=== PATIENT | male | born 1970 | race Caucasian/White ===

== ENCOUNTER → 2018-01-25 14:35 | Outpatient (CLI) | payer OTHER, SELFPAY ==
--- NOTE | 2018-01-25 | DI.CT.S_ITS ---
PROCEDURE: CT ABDOMEN PELVIS WO/W CON INDICATIONS: GROSS HEMATURIA TECHNIQUE: Optional 5 mm thick noncontrast images acquired from the diaphragm to the symphysis pubis. After the administration of intravenous contrast, 5 mm thick images acquired from the diaphragm to the symphysis pubis after a 10-minute delay. 2 mm thick coronal and sagittal reformats were then performed of the kidneys and ureters. For radiation dose reduction, the following was used: automated exposure control, adjustment of mA and/or kV according to patient size. COMPARISON: None. FINDINGS: Image quality: Excellent. Lung bases: Lung bases are clear. Heart size is normal. Urinary system: Both kidneys are normal in size, without hydronephrosis or nephrolithiasis on pre-contrast images. No perinephric fat stranding. There is normal bilateral renal enhancement. Renal calyces appear normal in morphology when filled with contrast. Opacified portions of both ureters demonstrate normal caliber. Bladder wall thickness appears mildly circumferentially thickened although unclear if this is due to partial decompression. No calcified bladder stones. Other solid organs: Liver is normal in size and enhancement. Gallbladder negative. Biliary system is non dilated. Pancreas enhances normally. Spleen is normal in size and enhancement. No adrenal nodules. Peritoneum and bowel: Bowel loops demonstrate normal wall thickness and caliber. No free fluid or air. The appendix is not clearly identified due to paucity of intra-abdominal fat however no suspicious right lower quadrant inflammatory changes are seen Nodes and vessels: No retroperitoneal or mesenteric adenopathy by size criteria. Aorta and inferior vena cava are normal in size. Abdominal wall: No ventral hernias. Pelvis: No pathologic free pelvic fluid. No inguinal hernias or adenopathy. Bones: No suspicious bony lesions. No vertebral body compression fractures. IMPRESSION: No urolithiasis or evidence of urinary obstruction identified. The bladder is partially decompressed (which makes evaluation suboptimal) however there is suspicion of mild circumferential bladder wall thickening, suggestive of cystitis, less likely neoplasm. However please correlate clinically and if warranted cystoscopy could be performed. Dictated by: Rufino Clark M.D. on 01/25/2018 at 17:08 Approved by: Rufino Clark M.D. on 01/25/2018 at 17:19
== END ==
PROVIDERS: Visit Provider Urology
DX: R31.0 Gross hematuria (principal)
CPT/HCPCS: 74178; Q9967

== ENCOUNTER → 2019-11-26 12:31 | Outpatient (CLI) | payer OTHER, SELFPAY ==
[2019-11-27 14:16] LABS: COVID19 Sendout Not Detected (Not Detect)
== END ==
PROVIDERS: Visit Provider Physician Assistant
DX: Z11.59 Encounter for screening for other viral diseases (principal)
CPT/HCPCS: 87635

== ENCOUNTER → 2020-02-22 09:12 | Outpatient (CLI) | payer OTHER, SELFPAY ==
[2020-02-23 16:56] LABS: COVID19 Sendout Not Detected (Not Detect)
== END ==
PROVIDERS: Visit Provider Physician Assistant
DX: Z11.59 Encounter for screening for other viral diseases (principal)
CPT/HCPCS: 87635

== ENCOUNTER → 2021-10-28 07:17 | Outpatient (CLI) | payer OTHER, SELFPAY ==
[2021-10-28 07:52] LABS: Add Manual Diff / Slide Review NO; Basophils Absolute Auto 0 /uL (0-100); Basophils Percent Auto 0.7 % (0-2); Eosinophils Absolute Auto 100 /uL (0-450); Eosinophils Percent Auto 1.4 % (2-4); Hematocrit 41.2 % (41-53); Hemoglobin 14.4 g/dL (13.5-17.5); Lymphocytes Absolute Auto 1100 /uL (1100-4500); Lymphocytes Percent Auto 26.6 % (25-40); Mean Corpuscular HGB Conc 34.9 % (30-36); Mean Corpuscular Hemoglobin 31.3 PG (26-34); Mean Corpuscular Volume 89.8 fL (80-100); Monocytes Absolute Auto 300 /uL (0-900); Monocytes Percent Auto 6.2 % (3-14); Neutrophils Absolute Auto 2800 /uL (1500-7000); Neutrophils Percent Auto 65.1 % (50-75); Platelet Count 189 X10^3/uL (150-400); Red Blood Cell Count 4.59 X10^6/uL (4.5-5.9); White Blood Cell Count 4.2 X10^3/uL (4.5-11.0)
[2021-10-28 09:50] LABS: Alanine Aminotransferase 38 IU/L (<50); Aspartate Aminotransferase 45 IU/L (17-59); BUN Creatinine Ratio 21.5 (6-22); Bilirubin Total 0.4 mg/dL (0.2-1.3); Blood Urea Nitrogen 20 mg/dL (9-20); Calcium 9.5 mg/dL (8.4-10.2); Carbon Dioxide 30 mmol/L (22-32); Chloride 103 mmol/L (98-107); Estimated Glomerular Filt Rate > 60 mL/min (>60); Glucose 101 mg/dL (70-100); Potassium 4.4 mmol/L (3.4-5.1); Sodium 139 mmol/L (137-145)
[2021-10-28 09:51] LABS: Albumin 4.3 g/dL (3.5-5.0); Albumin Globulin Ratio 1.6 (1.0-2.8); Alkaline Phosphatase 60 U/L (38-126); Cholesterol 204 mg/dL (140-199); Globulin 2.7 g/dL (1.7-4.1); HDL Cholesterol 82 mg/dL (40-60); HEMOLYSIS < 15 (0-50); LDL Cholesterol Calculated 82 mg/dL (<100); Triglycerides 200 mg/dL (35-150)
== END ==
PROVIDERS: PCP Nurse Practitioner; Referring Provider Nurse Practitioner; Visit Provider Nurse Practitioner
DX: F41.8 Other specified anxiety disorders (principal); G47.00 Insomnia, unspecified; Z13.220 Encounter for screening for lipoid disorders
CPT/HCPCS: 36415; 80053; 80061; 85025

== ENCOUNTER → 2022-03-11 09:20 | Outpatient (CLI) | payer OTHER, SELFPAY ==
[2022-03-11 12:07] LABS: Add Manual Diff / Slide Review NO; Basophils Absolute Auto 0 /uL (0-100); Basophils Percent Auto 0.8 % (0-2); Eosinophils Absolute Auto 100 /uL (0-450); Eosinophils Percent Auto 2.1 % (2-4); Hemoglobin 15.4 g/dL (13.5-17.5); Lymphocytes Absolute Auto 900 /uL (1100-4500); Lymphocytes Percent Auto 20.1 % (25-40); Mean Corpuscular HGB Conc 34.9 % (30-36); Mean Corpuscular Hemoglobin 31.3 PG (26-34); Mean Corpuscular Volume 89.7 fL (80-100); Monocytes Absolute Auto 300 /uL (0-900); Monocytes Percent Auto 7.6 % (3-14); Neutrophils Absolute Auto 3000 /uL (1500-7000); Neutrophils Percent Auto 69.4 % (50-75); Platelet Count 176 X10^3/uL (150-400); Red Blood Cell Count 4.91 X10^6/uL (4.5-5.9); Red Cell Distribution Width 13.1 % (11.6-14.8); White Blood Cell Count 4.3 X10^3/uL (4.5-11.0)
[2022-03-11 13:52] LABS: Alanine Aminotransferase 81 IU/L (<50); Albumin 4.6 g/dL (3.5-5.0); Albumin Globulin Ratio 1.4 (1.0-2.8); Alkaline Phosphatase 69 U/L (38-126); Aspartate Aminotransferase 52 IU/L (17-59); BUN Creatinine Ratio 15.6 (6-22); Bilirubin Total 0.6 mg/dL (0.2-1.3); Blood Urea Nitrogen 14 mg/dL (9-20); Calcium 9.7 mg/dL (8.4-10.2); Carbon Dioxide 31 mmol/L (22-32); Chloride 100 mmol/L (98-107); Cholesterol 166 mg/dL (140-199); Estimated Glomerular Filt Rate > 60 mL/min (>60); Globulin 3.2 g/dL (1.7-4.1); Glucose 98 mg/dL (70-100); HDL Cholesterol 73 mg/dL (40-60); HEMOLYSIS < 15 (0-50); LDL Cholesterol Calculated 69 mg/dL (<100); Potassium 4.9 mmol/L (3.4-5.1); Sodium 139 mmol/L (137-145); Total Protein 7.8 g/dL (6.3-8.2); Triglycerides 121 mg/dL (35-150)
== END ==
PROVIDERS: PCP Nurse Practitioner; Referring Provider Physician Assistant; Visit Provider Physician Assistant
DX: L66.1 Lichen planopilaris (principal)
CPT/HCPCS: 36415; 80053; 80061; 85025

== ENCOUNTER → 2022-03-17 09:13 | Outpatient (CLI) | payer OTHER, SELFPAY ==
[2022-03-17 11:45] LABS: Hepatitis B Surface Antigen NEGATIVE s/c (NEGATIVE)
[2022-03-17 12:03] LABS: HIV 1 & 2 Ab/Ag 4th Gen Combo NEGATIVE (NEGATIVE); Hep C Virus Ab w/Reflex Quant NEGATIVE s/c (NEGATIVE)
[2022-03-20 16:37] LABS: Glucose-6-Phosphate Dehydrogen 255 (127-427)
[2022-03-20 21:36] LABS: Hepatitis B Surf Ab Qualitativ Reactive (.)
[2022-03-22 15:30] LABS: QuantiFERON Mitogen Value >10.00 IU/mL (.); QuantiFERON Nil Value 0.01 IU/mL (.); QuantiFERON TB Gold Plus Negative (Negative); QuantiFERON TB2 Ag Value 0.07 IU/mL (.)
== END ==
PROVIDERS: PCP Nurse Practitioner; Referring Provider Physician Assistant; Visit Provider Physician Assistant
DX: L66.1 Lichen planopilaris (principal)
CPT/HCPCS: 36415; 82955; 85041; 86480; 86706; 86803; 87340; 87389

== ENCOUNTER → 2022-05-15 09:40 | Outpatient (CLI) | payer OTHER, SELFPAY ==
[2022-05-15 10:23] LABS: Add Manual Diff / Slide Review NO; Basophils Absolute Auto 0 /uL (0-100); Basophils Percent Auto 0.8 % (0-2); Eosinophils Absolute Auto 0 /uL (0-450); Eosinophils Percent Auto 0.8 % (2-4); Hematocrit 45.1 % (41-53); Hemoglobin 15.1 g/dL (13.5-17.5); Lymphocytes Absolute Auto 800 /uL (1100-4500); Lymphocytes Percent Auto 15.3 % (25-40); Mean Corpuscular HGB Conc 33.6 % (30-36); Mean Corpuscular Hemoglobin 30.7 PG (26-34); Mean Corpuscular Volume 91.4 fL (80-100); Monocytes Absolute Auto 300 /uL (0-900); Monocytes Percent Auto 5.5 % (3-14); Neutrophils Absolute Auto 4300 /uL (1500-7000); Neutrophils Percent Auto 77.6 % (50-75); Platelet Count 193 X10^3/uL (150-400); Red Blood Cell Count 4.93 X10^6/uL (4.5-5.9); Red Cell Distribution Width 13.1 % (11.6-14.8); White Blood Cell Count 5.5 X10^3/uL (4.5-11.0)
[2022-05-15 10:35] LABS: Alanine Aminotransferase 55 IU/L (<50); Albumin 4.9 g/dL (3.5-5.0); Albumin Globulin Ratio 1.3 (1.0-2.8); Alkaline Phosphatase 93 U/L (38-126); Aspartate Aminotransferase 45 IU/L (17-59); BUN Creatinine Ratio 17.4 (6-22); Bilirubin Total 1.1 mg/dL (0.2-1.3); Blood Urea Nitrogen 16 mg/dL (9-20); Calcium 9.9 mg/dL (8.4-10.2); Carbon Dioxide 31 mmol/L (22-32); Chloride 99 mmol/L (98-107); Estimated Glomerular Filt Rate > 60 mL/min (>60); Globulin 3.7 g/dL (1.7-4.1); Glucose 105 mg/dL (70-100); HEMOLYSIS < 15 (0-50); Potassium 4.2 mmol/L (3.4-5.1); Sodium 139 mmol/L (137-145); Total Protein 8.6 g/dL (6.3-8.2)
== END ==
PROVIDERS: PCP Nurse Practitioner; Referring Provider Physician Assistant; Visit Provider Physician Assistant
DX: L66.1 Lichen planopilaris (principal)
CPT/HCPCS: 36415; 80053; 85025

== ENCOUNTER → 2022-09-29 09:42 | Outpatient (CLI) | payer OTHER, SELFPAY ==
[2022-09-29 10:32] LABS: Add Manual Diff / Slide Review NO; Basophils Absolute Auto 0 /uL (0-100); Basophils Percent Auto 0.6 % (0-2); Eosinophils Absolute Auto 100 /uL (0-450); Eosinophils Percent Auto 1.6 % (2-4); Hematocrit 40.8 % (41-53); Hemoglobin 14.2 g/dL (13.5-17.5); Lymphocytes Absolute Auto 900 /uL (1100-4500); Lymphocytes Percent Auto 26.4 % (25-40); Mean Corpuscular HGB Conc 34.8 % (30-36); Mean Corpuscular Hemoglobin 31.2 PG (26-34); Mean Corpuscular Volume 89.8 fL (80-100); Monocytes Absolute Auto 200 /uL (0-900); Monocytes Percent Auto 7.1 % (3-14); Neutrophils Absolute Auto 2300 /uL (1500-7000); Neutrophils Percent Auto 64.3 % (50-75); Platelet Count 174 X10^3/uL (150-400); Red Blood Cell Count 4.54 X10^6/uL (4.5-5.9); Red Cell Distribution Width 13.1 % (11.6-14.8); White Blood Cell Count 3.5 X10^3/uL (4.5-11.0)
[2022-09-29 10:33] LABS: Alanine Aminotransferase 53 IU/L (<50); Albumin 4.5 g/dL (3.5-5.0); Albumin Globulin Ratio 1.7 (1.0-2.8); Alkaline Phosphatase 72 U/L (38-126); Aspartate Aminotransferase 47 IU/L (17-59); BUN Creatinine Ratio 19.5 (6-22); Bilirubin Total 0.6 mg/dL (0.2-1.3); Blood Urea Nitrogen 17 mg/dL (9-20); Calcium 9.5 mg/dL (8.4-10.2); Carbon Dioxide 33 mmol/L (22-32); Chloride 101 mmol/L (98-107); Cholesterol 191 mg/dL (140-199); Estimated Glomerular Filt Rate > 60 mL/min (>60); Globulin 2.6 g/dL (1.7-4.1); Glucose 99 mg/dL (70-100); HDL Cholesterol 86 mg/dL (40-60); HEMOLYSIS < 15 (0-50); LDL Cholesterol Calculated 85 mg/dL (<100); Potassium 4.8 mmol/L (3.4-5.1); Sodium 138 mmol/L (137-145); Total Protein 7.1 g/dL (6.3-8.2); Triglycerides 99 mg/dL (35-150)
[2022-10-08 18:08] LABS: Percent Free Testosterone 2.51 % (1.50-4.20); Testosterone Free 4.84 ng/dL (5.00-21.00); Testosterone Total 192.7 ng/dL (264.0-916.0)
== END ==
PROVIDERS: PCP Nurse Practitioner; Referring Provider Nurse Practitioner; Visit Provider Nurse Practitioner
DX: R53.83 Other fatigue (principal); Z13.220 Encounter for screening for lipoid disorders; F51.01 Primary insomnia
CPT/HCPCS: 36415; 80053; 80061; 84402; 84403; 85025

== ENCOUNTER → 2022-11-16 07:21 | Outpatient (CLI) | payer OTHER, SELFPAY ==
[2022-11-16 09:17] LABS: Add Manual Diff / Slide Review NO; Basophils Absolute Auto 0 /uL (0-100); Basophils Percent Auto 0.9 % (0-2); Eosinophils Absolute Auto 100 /uL (0-450); Eosinophils Percent Auto 1.3 % (2-4); Hematocrit 39.6 % (41-53); Hemoglobin 13.6 g/dL (13.5-17.5); Lymphocytes Absolute Auto 1100 /uL (1100-4500); Mean Corpuscular HGB Conc 34.4 % (30-36); Mean Corpuscular Hemoglobin 31.5 PG (26-34); Mean Corpuscular Volume 91.5 fL (80-100); Monocytes Absolute Auto 400 /uL (0-900); Monocytes Percent Auto 9.3 % (3-14); Neutrophils Absolute Auto 2300 /uL (1500-7000); Neutrophils Percent Auto 59.5 % (50-75); Platelet Count 181 X10^3/uL (150-400); Red Blood Cell Count 4.33 X10^6/uL (4.5-5.9); Red Cell Distribution Width 12.5 % (11.6-14.8); White Blood Cell Count 3.9 X10^3/uL (4.5-11.0)
[2022-11-16 09:29] LABS: Alanine Aminotransferase 32 IU/L (<50); Albumin 4.2 g/dL (3.5-5.0); Albumin Globulin Ratio 1.8 (1.0-2.8); Alkaline Phosphatase 66 U/L (38-126); Aspartate Aminotransferase 35 IU/L (17-59); Bilirubin Total 0.4 mg/dL (0.2-1.3); Bilirubin Unconjugated 0.4 mg/dL (0.0-1.1); Globulin 2.4 g/dL (1.7-4.1); HEMOLYSIS < 15 (0-50); Total Protein 6.6 g/dL (6.3-8.2)
[2022-11-20 09:50] LABS: Percent Free Testosterone 2.68 % (1.50-4.20); Testosterone Free 5.48 ng/dL (5.00-21.00); Testosterone Total 204.3 ng/dL (264.0-916.0)
== END ==
PROVIDERS: PCP Nurse Practitioner; Referring Provider Nurse Practitioner; Visit Provider Nurse Practitioner
DX: R79.89 Other specified abnormal findings of blood chemistry (principal); D72.9 Disorder of white blood cells, unspecified; E29.1 Testicular hypofunction
CPT/HCPCS: 36415; 80076; 84402; 84403; 85025

== ENCOUNTER → 2023-04-27 14:32 | Outpatient (CLI) | payer OTHER, SELFPAY ==
--- NOTE | 2023-04-27 | DI.CT.S_ITS ---
PROCEDURE: CT CHEST ABDOMEN W CON INDICATIONS: Dysphagia, unspecified TECHNIQUE: After the administration of oral contrast and intravenous contrast, 5 mm thick sections acquired from the lung apices to the iliac crests. 5 mm coronal and sagittal reformats were performed, with additional 7 mm coronal MIP reformats through the lungs. For radiation dose reduction, the following was used: automated exposure control, adjustment of mA and/or kV according to patient size. COMPARISON: [facility], CT, CT ABDOMEN PELVIS WO/W CON, 01/25/2018, 14:47. FINDINGS: Image quality: Excellent. CHEST: Lungs and pleura: No acute air space opacities. No pleural effusions or pneumothorax. Central and peripheral airways are patent and normal in caliber. Mediastinum: Heart size is normal. No pericardial effusion. No mediastinal or hilar adenopathy by size criteria. Thoracic aorta and central pulmonary arteries are normal in size. Esophagus is normal in caliber. No hiatal hernia. Chest wall: No axillary or supraclavicular adenopathy by size criteria. No thyroid nodules which require sonographic follow up, per consensus guidelines. ABDOMEN: Solid organs: Liver is normal in size and enhancement. Gallbladder is normal . Biliary system is non dilated. Pancreas enhances normally. Spleen is normal in size and enhancement. No adrenal nodules. Kidneys are normal in size and enhancement, without hydronephrosis. Peritoneum and bowel: Bowel loops demonstrate normal wall thickness and caliber. No free fluid or air. Nodes and vessels: No retroperitoneal or mesenteric adenopathy by size criteria. Aorta and inferior vena cava are normal in caliber. Bones: No suspicious bony lesions. No vertebral body compression fractures. Miscellaneous: No ventral hernias. IMPRESSION: 1. No evidence of hiatal hernia. Dictated by: Clare Aden M.D. on 04/27/2023 at 17:59 Approved by: Clare Aden M.D. on 04/27/2023 at 18:05
== END ==
PROVIDERS: PCP Nurse Practitioner; Referring Provider Nurse Practitioner Family; Visit Provider Nurse Practitioner Family
DX: R13.10 Dysphagia, unspecified (principal)
CPT/HCPCS: 71260; 74160; Q9967

== ENCOUNTER → 2023-06-25 09:00 | Outpatient (CLI) | payer OTHER, SELFPAY ==
[2023-06-25 09:44] LABS: Add Manual Diff / Slide Review NO; Basophils Absolute Auto 0 /uL (0-100); Basophils Percent Auto 0.8 % (0-2); Eosinophils Absolute Auto 0 /uL (0-450); Eosinophils Percent Auto 0.5 % (2-4); Hematocrit 42.4 % (41-53); Hemoglobin 14.8 g/dL (13.5-17.5); Lymphocytes Absolute Auto 800 /uL (1100-4500); Lymphocytes Percent Auto 24.5 % (25-40); Mean Corpuscular HGB Conc 34.9 % (30-36); Mean Corpuscular Hemoglobin 31.9 PG (26-34); Mean Corpuscular Volume 91.4 fL (80-100); Monocytes Absolute Auto 300 /uL (0-900); Neutrophils Absolute Auto 2200 /uL (1500-7000); Neutrophils Percent Auto 65.2 % (50-75); Platelet Count 180 X10^3/uL (150-400); Red Blood Cell Count 4.63 X10^6/uL (4.5-5.9); Red Cell Distribution Width 13.2 % (11.6-14.8); White Blood Cell Count 3.3 X10^3/uL (4.5-11.0)
[2023-06-25 11:11] LABS: Prostate Specific Antigen 0.425 ng/mL (0.10-4.00)
[2023-07-03 11:11] LABS: Percent Free Testosterone 4.13 % (1.50-4.20); Testosterone Free 25.97 ng/dL (5.00-21.00); Testosterone Total 628.7 ng/dL (264.0-916.0)
== END ==
PROVIDERS: PCP Nurse Practitioner; Referring Provider Student in an Organized Health Care Education/Training Program; Visit Provider Student in an Organized Health Care Education/Training Program
DX: E29.1 Testicular hypofunction (principal)
CPT/HCPCS: 36415; 84153; 84402; 84403; 85025

== ENCOUNTER → 2024-05-01 06:52 | Outpatient (CLI) | payer OTHER, SELFPAY ==
[2024-05-01 09:02] LABS: Alanine Aminotransferase 32 IU/L (<50); Albumin 4.4 g/dL (3.5-5.0); Albumin Globulin Ratio 1.9 (1.0-2.8); Alkaline Phosphatase 67 U/L (38-126); Aspartate Aminotransferase 37 IU/L (17-59); BUN Creatinine Ratio 17.6 (6-22); Bilirubin Total 0.3 mg/dL (0.2-1.3); Blood Urea Nitrogen 19 mg/dL (9-20); Calcium 9.8 mg/dL (8.4-10.2); Carbon Dioxide 31 mmol/L (22-32); Chloride 101 mmol/L (98-107); Cholesterol 183 mg/dL (140-199); Estimated Glomerular Filt Rate > 60 mL/min (>60); Globulin 2.3 g/dL (1.7-4.1); Glucose 93 mg/dL (70-100); HDL Cholesterol 65 mg/dL (40-60); HEMOLYSIS < 15 (0-50); LDL Cholesterol Calculated 88 mg/dL (<100); Potassium 4.2 mmol/L (3.4-5.1); Sodium 137 mmol/L (137-145); Total Protein 6.7 g/dL (6.3-8.2); Triglycerides 150 mg/dL (35-150)
== END ==
PROVIDERS: PCP Nurse Practitioner; Referring Provider Nurse Practitioner; Visit Provider Nurse Practitioner
DX: Z13.220 Encounter for screening for lipoid disorders (principal); F51.01 Primary insomnia
CPT/HCPCS: 36415; 80053; 80061

== ENCOUNTER → 2024-06-12 10:42 | Outpatient (CLI) | payer OTHER, SELFPAY ==
[2024-06-12 11:01] LABS: Add Manual Diff / Slide Review NO; Basophils Absolute Auto 0 /uL (0-100); Basophils Percent Auto 0.4 % (0-2); Eosinophils Absolute Auto 100 /uL (0-450); Eosinophils Percent Auto 1.7 % (2-4); Hematocrit 48.9 % (41-53); Hemoglobin 16.9 g/dL (13.5-17.5); Lymphocytes Absolute Auto 900 /uL (1100-4500); Lymphocytes Percent Auto 19.4 % (25-40); Mean Corpuscular HGB Conc 34.6 % (30-36); Mean Corpuscular Hemoglobin 31.5 PG (26-34); Mean Corpuscular Volume 91.1 fL (80-100); Monocytes Absolute Auto 300 /uL (0-900); Monocytes Percent Auto 6.5 % (3-14); Neutrophils Absolute Auto 3300 /uL (1500-7000); Platelet Count 199 X10^3/uL (150-400); Red Blood Cell Count 5.36 X10^6/uL (4.5-5.9); Red Cell Distribution Width 12.5 % (11.6-14.8); White Blood Cell Count 4.7 X10^3/uL (4.5-11.0)
[2024-06-12 11:45] LABS: Prostate Specific Antigen 0.539 ng/mL (0.10-4.00)
== END ==
LOC: LAB 10:44
PROVIDERS: PCP Nurse Practitioner; Referring Provider Student in an Organized Health Care Education/Training Program; Visit Provider Student in an Organized Health Care Education/Training Program
DX: E29.1 Testicular hypofunction (principal)
CPT/HCPCS: 36415; 84153; 84402; 84403; 85025